=== PATIENT | female | born 1935 | race Caucasian/White ===

== ENCOUNTER 2016-07-23 20:41 | Emergency (ER) | payer OTHER ==
[~2016-07-23] VITALS: Ht 152.4 cm; Wt 136.4 kg
[~2016-07-23 20:41] MED LIST: B-121000 MCG PO; CARDIZEM60 MG PO; Levaquin PO; PROTONIX40 MG PO; Protonix PO; VITAMIN D250000 UNIT PO; ZAROXOLYN,DIULO5 MG PO
[2016-07-23] MEDS ORDERED: ULTRACET1 TABLET PO (23:49)
[2016-07-24] VITALS: BP 165/62
== END 2016-07-24 00:09 | disposition home or self-care (01) ==
LOC: EXP 20:41 → EME 20:41 → EXP 07-24 00:09
DX: M54.12 Radiculopathy, cervical region (principal); I48.91 Unspecified atrial fibrillation; M19.90 Unspecified osteoarthritis, unspecified site; Z95.810 Presence of automatic (implantable) cardiac defibrillator; Z87.891 Personal history of nicotine dependence; Z88.0 Allergy status to penicillin
CPT/HCPCS: 72125; 99281; 99284; J8540

== ENCOUNTER 2016-08-18 14:29 | Day surgery (SDC) | payer OTHER ==
[~2016-08-18] VITALS: Ht 149.9 cm; Wt 140.1 kg
[~2016-08-18 14:29] MED LIST changes: +ULTRACET1 TABLET PO; +VITAMIN D31000 UNIT PO; +ZYRTEC10 M3 PO
== END 2016-08-18 19:25 | disposition home or self-care (01) ==
LOC: CATH 14:29
DX: Z45.010 Encounter for checking and testing of cardiac pacemaker pulse generator [battery] (principal); I49.5 Sick sinus syndrome; I48.0 Paroxysmal atrial fibrillation; Z88.0 Allergy status to penicillin; E66.01 Morbid (severe) obesity due to excess calories; Z68.44 Body mass index [BMI] 60.0-69.9, adult
CPT/HCPCS: C1785; J0690; J0696; J2250; J3010; J7050; S0020